=== PATIENT | male | born 1995 | race Caucasian/White ===

== ENCOUNTER 2022-03-10 13:36 | Emergency (ER) | payer MEDICAID ==
[2022-03-10] MEDS ORDERED: Bacitracin Oint 1 GM U/D Packet TOP ONE (15:13)
[2022-03-10] MEDS ORDERED: Lidocaine 1% 5 ML VIAL INJECT ONE (15:13)
[2022-03-10] MEDS ORDERED: Diphtheria,Pertussis(Acell),Tetanus Vaccine 0.5 ML Syringe IM ONE (15:14)
== END 2022-03-10 15:47 | disposition home or self-care (01) ==
LOC: JP.ED 13:36
DX: S60.551A Superficial foreign body of right hand, initial encounter (principal); Z23 Encounter for immunization; W45.8XXA Other foreign body or object entering through skin, initial encounter
CPT/HCPCS: 90471; 90715; 99283-25